=== PATIENT | female | born 1955 | race Caucasian/White ===

== ENCOUNTER 2016-10-18 17:01 | Emergency (ER) | payer MEDICARE, MEDICAID ==
[~2016-10-18] VITALS: Ht 160 cm; Wt 59.9 kg
[2016-10-18 17:55] VITALS: BP 102/56
[2016-10-18] MEDS ORDERED: LIDOCAINE 1% / SOD BICARB 8.4% 20 ML VIAL. IJ ONE (18:00)
--- NOTE | 2016-10-18 18:45 | PHYS DOC ---
Past Medical History Past Medical History: Arthritis, Diverticulitis, IBS Additional Past Medical Histor: MS Past Surgical History: Appendectomy, Cholecystectomy, Hysterectomy, Tonsillectomy Additional Past Surgical Histo: NECK, BACK Alcohol Use: Occasionally Drug Use: None Adult General Chief Complaint Chief Complaint: LACERATION/AVULSION HPI HPI Patient is a 61 year old female presents emergency room today with complaint of a laceration to her left thumb that happened within the past hour and she was cutting carrots. Patient denies any additional injuries or concerns at this time. Patient states that she received a list has not shot within the past year. Review of Systems Review of Systems Constitutional: Denies fever or chills [] Eyes: Denies change in visual acuity, redness, or eye pain [] HENT: Denies nasal congestion or sore throat [] Respiratory: Denies cough or shortness of breath [] Cardiovascular: No additional information not addressed in HPI [] GI: Denies abdominal pain, nausea, vomiting, bloody stools or diarrhea [] : Denies dysuria or hematuria [] Musculoskeletal: Denies back pain or joint pain [] Integument: Denies rash or skin lesions [] Neurologic: Denies headache, focal weakness or sensory changes [] Endocrine: Denies polyuria or polydipsia [] Current Medications Current Medications Current Medications Medications (Trade) Dose Ordered Sig/Jeremy Start Time Stop Time Status Last Admin Dose Admin Lidocaine/Sodium Bicarbonate (Buffered Lidocaine 1%) 20 ml 1X ONCE 10/18/16 18:00 10/18/16 18:09 DC 10/18/16 18:02 20 ML Allergies Allergies Allergies Coded Allergies Type Severity Reaction Last Updated Verified Penicillins Allergy Unknown 10/18/16 No codeine Allergy Unknown 10/18/16 No Physical Exam Physical Exam Constitutional: Well developed, well nourished, no acute distress, non-toxic appearance. [] HENT: Normocephalic, atraumatic, bilateral external ears normal, oropharynx moist, no oral exudates, nose normal. [] Eyes: PERRLA, EOMI, conjunctiva normal, no discharge. [] Neck: Normal range of motion, no tenderness, supple, no stridor. [] Cardiovascular:Heart rate regular rhythm, no murmur [] Lungs & Thorax: Bilateral breath sounds clear to auscultation [] Abdomen: Bowel sounds normal, soft, no tenderness, no masses, no pulsatile masses. [] Skin: Warm, dry, no erythema, no rash. [] Back: No tenderness, no CVA tenderness. [] Extremities: 2.5 cm laceration to the distal phalanx of the left thumb. This laceration does not involve the nail, nailbed or joint space. Flexor and extensor function is intact. Left thumb is neurovascular intact with capillary refill less than 2 seconds. There is no evidence of flexor extensor tendon injury. Neurologic: Alert and oriented X 3, normal motor function, normal sensory function, no focal deficits noted. [] Psychologic: Affect normal, judgement normal, mood normal. [] Current Patient Data Vital Signs Vital Signs Date Time Temp Pulse Resp B/P Pulse Ox O2 Delivery O2 Flow Rate FiO2 10/18/16 17:55 97.9 83 16 97 Room Air 97.9 EKG EKG [] Radiology/Procedures Radiology/Procedures 2.5 cm laceration to the distal phalanx of left thumb was anesthetized with buffered 1% lidocaine. Wound was cleansed with Betadine solution and rinsed with copious amounts of saline. Wound was explored for foreign bodies. No foreign bodies are found. Flexor and extensor tendons were not visualized slashed injured. Wound margins were approximated utilizing 5-0 nylon in a simple interrupted fashion of a singular closure for total of 5 stitches. Patient tolerated the procedure well. Course & Med Decision Making Course & Med Decision Making Pertinent Labs and Imaging studies reviewed. (See chart for details) [] Dragon Disclaimer Dragon Disclaimer This electronic medical record was generated, in whole or in part, using a voice recognition dictation system. Departure Departure Impression: Primary Impression: Laceration Disposition: 01 HOME, SELF-CARE Condition: IMPROVED Referrals: UNKNOWN PCP NAME (PCP) Patient Instructions: Laceration Care, Adult, [id number] Additional Instructions: 1. Keep the area clean and dry. You are okay to wash your hands.Do not soak your hands in water. 2. Stitches should be removed in 7-10 days. 10 days be an optimum for suture removal timeframe. 3. Review the discharge instructions for self-care and reasons to return to the emergency department. 4. You can follow-up with your primary care office for wound evaluation and suture removal. BALDO ELAINE Oct 18, 2016 18:45
== END 2016-10-18 18:53 | disposition home or self-care (01) ==
LOC: ER 17:01
DX: S61.012A Laceration without foreign body of left thumb without damage to nail, initial encounter (principal); M19.90 Unspecified osteoarthritis, unspecified site; Z88.0 Allergy status to penicillin; Z88.5 Allergy status to narcotic agent; W26.0XXA Contact with knife, initial encounter; Y93.89 Activity, other specified; Y92.89 Other specified places as the place of occurrence of the external cause; Y99.8 Other external cause status
CPT/HCPCS: 12001; 99283-25